=== PATIENT | female | born 1965 | race Caucasian/White ===

== ENCOUNTER → 2018-09-28 16:33 | Outpatient (CLI) | payer OTHER, SELFPAY ==
--- NOTE | 2018-09-28 16:37 | RAD_ITS ---
STUDY: X-RAY - ABDOMEN/PELVIS REASON FOR EXAM: Female, 53 years old. Hematuria TECHNIQUE: Single AP view of the abdomen / pelvis. COMPARISON: None. FINDINGS: Normal visualized lung bases. There is a moderate amount of colonic fecal material. No dilated loops of bowel or evidence for obstruction. There is no demonstrated free abdominal air. The visualized liver, spleen and kidneys are grossly normal in size and morphology. Normal soft tissue structures. Normal visualized osseous structures. RAD/Abdomen Single View IMPRESSION: No definite renal or ureteral stones. Moderate fecal retention. Electronically Signed: Dean Sevilla MD at 14:09 EDT , Service support ,
[2018-09-28 17:40] LABS: Absolute Lymphocyte Count 3.56 X10^3/ul (0.83-4.51); Absolute Neutrophil Count 6.4 X10^3/uL (2.0-7.7); Basophil# 0.06 X10^3/uL; Basophil% 0.6 % (0-1); Eosinophil# 0.24 X10^3/uL; Eosinophils% 2.2 % (0-5); Hematocrit 43.2 % (37-47); Hemoglobin 13.4 g/dl (12.0-15.0); Lymphocyte # 3.56 X10^3/ul (4.0); Lymphocyte % 32.7 % (19-41); Mean Corpuscular Hgb 27.2 pg (27.0-32.0); Mean Corpuscular Volume 87.8 fL (81-99); Mean Platelet Vol. 11.2 fl (6.2-12.0); Monocyte# 0.58 X10^3/uL; Monocyte% 5.3 % (0-10); Neutrophil # 6.43 X10^3/uL (2.7-7.7); Neutrophil % 59.1 % (47-70); Platelet Count 319 K/mm3 (150-450); RBC Distribution Width CV 14.2 % (11.6-14.6); RBC Distribution Width SD 45.3 fl (35.1-43.9); Red Blood Count 4.92 M/mm3 (4.2-5.4); White Blood Count 10.9 K/mm3 (4.4-11.0)
[2018-09-28 17:41] LABS: POSITIVE COUNT NO; POSITIVE DIFFERENTIAL NO; POSITIVE MORPHOLOGY NO
[2018-09-28 17:50] LABS: Anion Gap 5 (5-15); BUN 14 mg/dL (7-18); BUN/Creat Ratio 25.6 RATIO (10-20); Calcium,Total 8.6 mg/dL (8.5-10.1); Chloride 105 mmol/L (98-107); Creatinine, Serum 0.55 mg/dL (0.55-1.02); EST Glomerular Filtration Rate 124 mL/min (>60); Est Glom Filt Rate - Afr Amer 150 mL/min (>60); Glucose 96 mg/dL (74-106); Potassium 3.4 mmol/L (3.5-5.1); Sodium Level 142 mmol/L (136-145)
== END ==
PROVIDERS: Family Provider Family Medicine; PCP Family Medicine; Referring Provider Family Medicine; Visit Provider Family Medicine
DX: R31.9 Hematuria, unspecified (principal)
CPT/HCPCS: 36415; 74018; 80048; 85025; 87086; 87088

== ENCOUNTER → 2018-10-06 17:24 | Outpatient (CLI) | payer OTHER, SELFPAY ==
--- NOTE | 2018-10-06 17:29 | CT_ITS ---
STUDY: CT ABDOMEN AND PELVIS WITH CONTRAST REASON FOR EXAM: Female, 53 years old. Hematuria RADIATION DOSAGE (If Supplied By Facility): CTDIvol = ( 17.07 ) mGy, DLP = ( 1361.15 ) mGycm TECHNIQUE: Transaxial images were obtained from the dome of the diaphragm to the symphysis pubis without oral contrast. 100 ml of Isovue 300 contrast was administered. Sagittal and coronal images were reconstructed. Individualized dose optimization techniques were used for this CT. COMPARISON: None. FINDINGS: The lung bases are clear. The liver is normal. No dilated intrahepatic biliary radicles. The gallbladder is normal with no calcifications within it. There is no pericholecystic fluid collection or streakiness The spleen is normal. The pancreas is normal. Both adrenals are normal. No hydronephrosis. No abnormal calcifications. Tiny benign renal cysts. The stomach is normal. There is no bowel distention, acute appendicitis or diverticulitis. No constricting lesions are seen in large bowel. The abdominal wall is intact with no hernias. There is no ascites or any free intraperitoneal air. No indication of epiploic appendagitis The vascular structures in the retroperitoneum are normal. There is no retrocrural, retroperitoneal or mesenteric adenopathy. The bones and joints are normal. The urinary bladder is normal. A previous hysterectomy. There is no inguinal or pelvic adenopathy. There is no inguinal hernia. . . CT/Abdomen/Pelvis WITH Contrast IMPRESSION: No acute findings in the abdomen or pelvis. Specifically there is no acute appendicitis or colitis. No hydronephrosis and no abnormal calcifications in the kidneys. The urinary bladder is normal. Electronically Signed: Steve Rodriguez MD at 5:54 EST Tel , Service support ,
== END ==
PROVIDERS: Family Provider Family Medicine; PCP Family Medicine; Referring Provider Family Medicine; Visit Provider Family Medicine
DX: R31.9 Hematuria, unspecified (principal)
CPT/HCPCS: 74177; Q9967

== ENCOUNTER → 2018-11-23 14:34 | Outpatient (CLI) | payer OTHER, SELFPAY ==
--- NOTE | 2018-11-23 15:17 | CT_ITS ---
STUDY: CTA CHEST REASON FOR EXAM: Female, 53 years old. RADIATION DOSAGE (If Supplied By Facility): CTDIvol = ( 20.02 ) mGy, DLP = ( 651.14 ) mGycm TECHNIQUE: The examination was performed with the intravenous administration of 100 ml of Isovue 370 contrast material. Post-processing of the angiographic images was performed, with multiplanar reformation and 3D reconstruction. Individualized dose optimization techniques were used for this CT. COMPARISON: None. FINDINGS: Normal enhancement of the main pulmonary artery and right and left pulmonary arteries. Normal enhancement of the bilateral peripheral pulmonary arteries. There is no demonstrated pulmonary embolism. Normal thoracic aorta and visualized great vessels. There is no demonstrated aortic dissection. Normal heart and pericardium. Normal mediastinum. Normal hilar regions. Normal visualized trachea and bronchi. The lungs are well expanded. Normal pulmonary parenchyma. Normal pleura. Normal chest wall structures. Normal osseous structures. Normal visualized upper abdomen. A small hiatal hernia present. CT/CTA Chest W/WO Contrast IMPRESSION: Normal CTA chest examination, without a demonstrated pulmonary embolism or arterial dissection. There is small hiatal hernia. Electronically Signed: Samm Turner, at 16:07 EST Tel , Service support ,
[2018-11-23 15:23] LABS: Absolute Lymphocyte Count 3.99 X10^3/ul (0.83-4.51); Absolute Neutrophil Count 6.1 X10^3/uL (2.0-7.7); Basophil# 0.05 X10^3/uL; Basophil% 0.5 % (0-1); Eosinophil# 0.39 X10^3/uL; Eosinophils% 3.5 % (0-5); Hematocrit 39.9 % (37-47); Hemoglobin 12.7 g/dl (12.0-15.0); Lymphocyte # 3.99 X10^3/ul (4.0); Lymphocyte % 36.2 % (19-41); Mean Corp Hgb Conc 31.8 g/gl (32-36); Mean Corpuscular Hgb 27.8 pg (27.0-32.0); Mean Corpuscular Volume 87.3 fL (81-99); Mean Platelet Vol. 11.1 fl (6.2-12.0); Monocyte# 0.51 X10^3/uL; Monocyte% 4.6 % (0-10); Neutrophil # 6.07 X10^3/uL (2.7-7.7); Platelet Count 331 K/mm3 (150-450); RBC Distribution Width CV 14.7 % (11.6-14.6); RBC Distribution Width SD 46.4 fl (35.1-43.9); Red Blood Count 4.57 M/mm3 (4.2-5.4)
[2018-11-23 15:24] LABS: POSITIVE COUNT NO; POSITIVE DIFFERENTIAL NO; POSITIVE MORPHOLOGY NO
[2018-11-23 15:33] LABS: Anion Gap 7 (5-15); BUN 12 mg/dL (7-18); BUN/Creat Ratio 18.2 RATIO (10-20); Calcium,Total 8.7 mg/dL (8.5-10.1); Chloride 106 mmol/L (98-107); Creatinine, Serum 0.66 mg/dL (0.55-1.02); EST Glomerular Filtration Rate 100 mL/min (>60); Est Glom Filt Rate - Afr Amer 121 mL/min (>60); Glucose 97 mg/dL (74-106); Potassium 3.8 mmol/L (3.5-5.1); Sodium Level 142 mmol/L (136-145)
== END ==
LOC: MFPLAB 14:41 → CT 15:03
PROVIDERS: Family Provider Family Medicine; PCP Family Medicine; Referring Provider Family Medicine; Visit Provider Family Medicine
DX: R07.9 Chest pain, unspecified (principal)
CPT/HCPCS: 36415; 71275; 80048; 85025; Q9967

== ENCOUNTER → 2019-02-03 11:40 | Outpatient (CLI) | payer OTHER, SELFPAY ==
--- NOTE | 2019-02-03 11:57 | RAD_ITS ---
STUDY: X-RAY CHEST REASON FOR EXAM: Female, 53 years old. Cough and shortness of breath. TECHNIQUE: PA and lateral views of the chest. COMPARISON: Prior comparison studies are not available for review at this time. FINDINGS: There are hypoventilatory changes in the right lung base. No focal infiltrate is seen. There is no demonstrated pleural abnormality. Normal size heart. Normal mediastinum and jarvis. Normal visualized pulmonary arteries. Normal visualized aortic arch and descending thoracic aorta. There are degenerative changes of the visualized thoracic spine. Normal visualized ribs, clavicles, and shoulders. There is no demonstrated abnormality of the visualized soft tissue structures of the upper abdomen. RAD/Chest PA and Lateral IMPRESSION: Hypoventilatory changes. No active pulmonary disease. Electronically Signed: Michele Richey MD at 11:40 EST Tel , Service support ,
== END ==
PROVIDERS: Family Provider Family Medicine; PCP Family Medicine; Referring Provider Family Medicine; Visit Provider Family Medicine
DX: J40 Bronchitis, not specified as acute or chronic (principal)
CPT/HCPCS: 71046

== ENCOUNTER → 2019-03-29 | Outpatient (CLI) | payer OTHER, SELFPAY ==
[2019-03-29 17:43] LABS: Anion Gap 4 (5-15); BUN 12 mg/dL (7-18); Calcium,Total 8.5 mg/dL (8.5-10.1); Chloride 106 mmol/L (98-107); Creatinine, Serum 0.63 mg/dL (0.55-1.02); EST Glomerular Filtration Rate 105 mL/min (>60); Est Glom Filt Rate - Afr Amer 127 mL/min (>60); Glucose 100 mg/dL (74-106); Potassium 4.1 mmol/L (3.5-5.1); Sodium Level 140 mmol/L (136-145)
[2019-03-29 18:02] LABS: Vitamin B12 514 pg/mL (211-911); Vitamin D,25 Hydroxy 8.8 ng/mL (29.95-100.01)
== END | disposition home or self-care (01) ==
LOC: MFPLAB 15:59
PROVIDERS: Family Provider Family Medicine; PCP Family Medicine; Referring Provider Family Medicine; Visit Provider Family Medicine
DX: R60.9 Edema, unspecified (principal); E53.8 Deficiency of other specified B group vitamins; E55.9 Vitamin D deficiency, unspecified
CPT/HCPCS: 36415; 80048; 82306; 82607

== ENCOUNTER → 2019-07-19 | Outpatient (CLI) | payer OTHER, SELFPAY ==
--- NOTE | 2019-07-19 16:03 | BI_ITS ---
MAMMOGRAPHY - BILATERAL SCREENING 3-D TOMOSYNTHESIS REASON FOR EXAM: Female, 54 years old. Bilateral Screening 3-D tomosynthesis PERTINENT HISTORY: No significant family history. TECHNIQUE: 2-D mammograms and 3-D Tomosynthesis of the breast (s) were performed. CAD was performed. COMPARISON: No comparison mammograms available at this time. If any prior films become available, an addendum to this report can be generated. FINDINGS: The breast composition is composed of scattered fibroglandular density. Scattered benign-appearing nodular densities visualized on both sides. Comparison with prior mammogram is recommended as follow-up to ensure non progression and stability. Scattered benign calcifications are seen. No dense spiculated masses or suspicious microcalcifications are identified. No architectural distortion is identified. There is no skin thickening or retraction. BI/SCREEN MAMM (CAD) W/DAVID BILAT IMPRESSION: Scattered benign-appearing nodular densities visualized on both sides. Comparison with prior mammogram is recommended as follow-up to ensure non progression and stability. ASSESSMENT CATEGORY: BIRADS Category 0: Incomplete. Need prior mammogram for comparison. A letter regarding these results will be sent to the patient by the facility within 30 days. FOLLOW UP RECOMMENDATION: Prior comparison images are needed. (K) Approximately 10% of breast cancers are not detected by mammography. A normal mammogram should not delay biopsy of a clinically suspicious abnormality. Electronically Signed: Sage Overton MD at 16:50 EDT Tel [phone], Service support ,
== END | disposition home or self-care (01) ==
PROVIDERS: Family Provider Family Medicine; PCP Family Medicine; Referring Provider Family Medicine; Visit Provider Family Medicine
DX: Z12.31 Encounter for screening mammogram for malignant neoplasm of breast (principal)
CPT/HCPCS: 77063; 77067

== ENCOUNTER → 2019-08-01 | Outpatient (CLI) | payer OTHER, SELFPAY ==
--- NOTE | 2019-08-01 09:46 | US_ITS ---
STUDY: ULTRASOUND BREAST - RIGHT REASON FOR EXAM: Female, 54 years old. Abnormal screening mammogram. TECHNIQUE: Axial and longitudinal images of the RIGHT breast were performed with a high resolution ultrasound transducer. COMPARISON: Comparison is made with prior mammogram dated July 19, 2019. FINDINGS: RIGHT Breast: There is an 8mm by 6 mm x 5 mm well-defined hypoechoic solid nodule at the 12:00 position breast at 4 cm from the nipple. There is also evidence of a 7 mm x 8 mm x 4 mm lipoma at the 10:00 position of the breast at 4 cm from the nipple. A similar appearing nodular density measuring 3 mm x 2 mm x 3 mm is seen at the 9:00 position of the breast at 5 cm from the nipple. There is also evidence of a 7 mm x 8 mm x 4 mm hypoechoic nodule with a central area of echogenic density suggestive of a small lymph node. IMPRESSION: Findings suggestive of a lymph node and 2 small lipomas in the breast as described. There is evidence of a 8 mm x 6 mm x 5 mm hypoechoic well-defined nodular density at the 12:00 percent of breast at 4 sinus on the nipple. A biopsy is recommended for further evaluation. ASSESSMENT CATEGORY: BIRADS Category 4: Suspicious - Biopsy Should Be Considered. A letter regarding these results will be sent to the patient by the facility within 30 days. Electronically Signed: Carlin Velazquez, at 14:41 EDT , Service support , STUDY: ULTRASOUND BREAST - LEFT REASON FOR EXAM: Female, 54 years old. Abnormal screening mammogram. TECHNIQUE: Axial and longitudinal images of the LEFT breast were performed with a high resolution ultrasound transducer. COMPARISON: None. FINDINGS: LEFT Breast: There is an 8 mm x 8 mm x 7 mm well-defined hypoechoic nodule at the 2:00 position of the breast at 2 cm from the nipple. A similar appearing nodule measuring 4 mm x 5 mm x 4 mm is also seen at the 1:00 position of the breast at 2 cm from the nipple. A biopsy of this lesion is recommended for further evaluation. Incidental note is also made of 2 subcentimeter lipomas at the 7:30 and 8:00 position of the breast. US/Breast Limited Unilateral IMPRESSION: Multiple findings as described. A biopsy of the 4 mm x 5 mm x 4 mm nodule is recommended at the 1:00 position of the breast at 2 cm from the nipple. ASSESSMENT CATEGORY: BIRADS Category 4: Suspicious - Biopsy Should Be Considered. A letter regarding these results will be sent to the patient by the facility within 30 days. Electronically Signed: Carlin Velazquez, at 14:44 EDT , Service support ,
== END | disposition home or self-care (01) ==
LOC: OPUS 09:44
PROVIDERS: Family Provider Family Medicine; PCP Family Medicine; Referring Provider Family Medicine; Visit Provider Family Medicine
DX: N63.10 Unspecified lump in the right breast, unspecified quadrant (principal); N63.20 Unspecified lump in the left breast, unspecified quadrant
CPT/HCPCS: 76642

== ENCOUNTER → 2019-08-07 12:12 | Outpatient (CLI) | payer OTHER, SELFPAY ==
--- NOTE | 2019-08-07 | IMM_PTH ---
PATIENT: BRANDON BEY LOC: [facility] U#:[id number] AGE/SX: 60/F ROOM: RE08/07/[address]: Dr. Jonny Ma MD : 1965 BED: DIS: SPEC #: [id number] RECD: 08/09/19 12:43 STATUS: ANATOLIY RERoselia #: [id number] DIANA: 08/07/19 00:[address]: Jonny Ma DEPT: IMMUNOHISTOCHEMISTRY RECD BY: Leilani Law ENTERED: 08/09/19 12:45 SP TYPE: IMMUNO OTHR DR: Dr. Marvel Ashley MD Tissues: B - Right breast, NOS C - Left breast, NOS Procedures: Calponin-1(initial) CD138 (add) CD20 (add) CD3 (add) CD45 (add) CD5 (add) CD79A (add) P40 (add) PHYSICIAN & INSTITUTION [place] [id number] SPECIMEN INFORMATION: Tissue Source: B - Right breast tissue at 12 o'clock +6, C - Left breast at 1 o'clock Clinical Info: Abnormal breast ultrasound Specimen Number: [id number] B & C CPT code: 53369 x2, 88554 x8 METHODOLOGY: Deparaffinized sections of prefer/formalin-fixed tissue or PAP/DQ stained slides are incubated with monoclonal/polyclonal antibodies/oligonucleotide probes. Localization is made via biotin free immunoperoxidase method. Appropriate controls are performed and reacted as expected. Results on target cell population are indicated in the following table: RESULTS: ANTIBODY / CLONE RESULT Block B Calponin-1 (GV330N) positive P40 (BC28) positive Block C CD3 (PS1) positive CD5 (SP10) positive CD20 (L26) positive CD45 (RP2/18) positive CD79a (11E3) positive CD138 (B-A38) negative Calponin-1 (XX368J) positive P40 (BC28) positive These tests were developed and their performance characteristics determined by [facility]. They may not have been cleared or approved by the U.S. Food and Drug Administration. The FDA has determined that such clearance or approval is not necessary. INTERPRETATION: B. Right breast tissue at 12 o'clock +6, core biopsy: Benign breast tissue. C. Left breast at 1 o'clock, core biopsy: Benign breast tissue. Consistent with chronic inflammation. AM:brendan 08/10/19
[2019-08-07 15:05] VITALS: BMI 52.0
--- NOTE | 2019-08-07 15:30 | BRBX_PTH ---
PATIENT: BRANDON BEY LOC: [facility] U#:[id number] AGE/SX: 60/F ROOM: RE08/07/[address]: Dr. Jonny Ma MD : 1965 BED: DIS: SPEC #: [id number] RECD: 08/08/19 09:19 STATUS: ANATOLIY GINO #: [id number] DIANA: 08/07/19 15:[address]: Jonny Ma DEPT: SURGICAL PATHOLOGY RECD BY: Meri Briscoe ENTERED: 08/08/19 10:38 SP TYPE: BREAST BX OTHR DR: Dr. Marvel Ashley MD Tissues: A - Right breast, NOS B - Right breast, NOS C - Left breast, NOS Procedures: Surgery Specimen Level IV HEADER OPERATION: Breast biopsy PRE-OP DIAGNOSIS: Abnormal breast ultrasound TISSUE SUBMITTED: A. Right breast tissue at 12 o'clock +4, B. Right breast tissue at 12 o'clock +6, C. Left breast tissue at 1 o'clock MICROSCOPIC DIAGNOSIS A. Right breast at 12 o'clock, core biopsy: Benign fibrofatty tissue. Blood clot. B. Right breast at 12 o'clock +6, core biopsy: Fibroadenoma. See comment. C. Left breast at 1 o'clock, core biopsy: Benign breast parenchyma. Reactive lymphoid tissue suggestive of chronic inflammation. See comment. AM:brendan 08/09/19 COMMENT B & C. Immunohistochemistry ([id number]) supports the above diagnosis. Case has been reviewed in consultation with Dr. Marion who concurs with the above diagnosis. IDC:SJ MICROSCOPIC DESCRIPTION Slides are reviewed. GROSS DESCRIPTION A - Received in fixative is one container labeled with the patient's name and designated right breast 12 o'clock +4. The specimen consists of multiple elongated fragments of kan-yellow fibroadipose tissue that in aggregate measure 0.5 x 0.5 x 0.1 cm. A few minute brownish fragments are also noted. The entire specimen is submitted in one cassette. B - Received in fixative is one container labeled with the patient's name and designated right breast 12 o'clock +6. The specimen consists of multiple elongated fragments of kan-yellow fibroadipose tissue that in aggregate measure 1.5 x 0.3 x 0.1 cm. The entire specimen is submitted in one cassette. C - Received in fixative is one container labeled with the patient's name and designated left breast 1 o'clock. The specimen consists of multiple elongated fragments of kan-yellow fibroadipose tissue that in aggregate measure 1.5 x 0.2 x 0.1 cm. The entire specimen is submitted in one cassette. / SJ:rg 08/08/19 TC:1 CPT: 60777 x3
== END ==
PROVIDERS: Family Provider Family Medicine; PCP Family Medicine; Referring Provider Surgery; Visit Provider Surgery
DX: D24.1 Benign neoplasm of right breast (principal)
CPT/HCPCS: 88305; 88341; 88342

== ENCOUNTER → 2020-01-31 09:05 | Outpatient (CLI) | payer OTHER, SELFPAY ==
[2019-08-07 15:05] VITALS: BMI 52.0
--- NOTE | 2020-01-31 09:06 | BI_ITS ---
MAMMOGRAPHY - BILATERAL DIAGNOSTIC REASON FOR EXAM: Female, 54 years old. Six-month follow-up for prior bilateral ultrasound-guided breast biopsies. PERTINENT HISTORY: Non-contributory. TECHNIQUE: Digital bilateral breast lonnie (3D mammographic acquisition) in the CC and MLO projections. 2-D mediolateral oblique (MLO) and craniocaudad (CC) views of both breasts were obtained. CAD: Full Field Digital Mammography with Computer Added Detection was performed. COMPARISON: Comparison is made with prior mammogram dated July 19, 2019. FINDINGS: Breast Composition: There are scattered areas of fibroglandular density. Stable benign-appearing bilateral breast nodules. A tissue clip marker is seen within the 1 cm nodule in the upper lateral aspect of the left breast. A tissue clip marker is also seen within a 5.2 mm nodule in the upper anterior lateral portion of the right breast. No other significant abnormalities are identified. There has been no significant change since the prior study. BI/DIAG MAMM W/CAD, BILAT IMPRESSION: Stable bilateral diagnostic mammogram. Status post bilateral breast nodule biopsies. One year follow-up recommended. (A) ASSESSMENT CATEGORY: BIRADS Category 2: Benign. A letter regarding these results will be sent to the patient by the facility within 30 days. Approximately 10% of breast cancers are not detected by mammography. A normal mammogram should not delay biopsy of a clinically suspicious abnormality. Electronically Signed: Carlin Velazquez, at 10:31 EST , Service support ,
== END ==
PROVIDERS: PCP Family Medicine; Referring Provider Surgery; Visit Provider Surgery
DX: R92.8 Other abnormal and inconclusive findings on diagnostic imaging of breast (principal)
CPT/HCPCS: 77062; 77066; G0279

== ENCOUNTER → 2020-05-22 10:26 | Outpatient (CLI) | payer OTHER, SELFPAY ==
[2019-08-07 15:05] VITALS: BMI 52.0
[2020-05-22 12:43] LABS: Absolute Lymphocyte Count 2.66 X10^3/uL (0.83-4.51); Absolute Neutrophil Count 5.9 X10^3/uL (2.0-7.7); Basophil# 0.07 X10^3/uL; Basophil% 0.7 % (0-1); Eosinophil# 0.19 X10^3/uL; Hematocrit 44.1 % (37-47); Hemoglobin 13.3 g/dL (12.0-15.0); Lymphocyte # 2.66 X10^3/ul (4.0); Lymphocyte % 28.3 % (19-41); Mean Corp Hgb Conc 30.2 g/dL (32-36); Mean Corpuscular Hgb 26.7 pg (27.0-32.0); Mean Corpuscular Volume 88.6 fL (81-99); Mean Platelet Vol. 12.1 fl (6.2-12.0); Monocyte# 0.59 X10^3/uL; Monocyte% 6.3 % (0-10); NRBC Flagged by Analyzer 0 % (0-5); Neutrophil # 5.86 X10^3/uL (2.7-7.7); Neutrophil % 62.4 % (47-70); Platelet Count 321 K/mm3 (150-450); RBC Distribution Width SD 44.9 fl (35.1-43.9); Red Blood Count 4.98 M/mm3 (4.2-5.4); White Blood Count 9.4 K/mm3 (4.4-11.0)
[2020-05-22 12:47] LABS: Anion Gap 6 (5-15); BUN 11 mg/dL (7-18); BUN/Creat Ratio 16.9 RATIO (10-20); Calcium,Total 8.9 mg/dL (8.5-10.1); Chloride 104 mmol/L (98-107); Creatinine, Serum 0.65 mg/dL (0.55-1.02); EST Glomerular Filtration Rate 101 mL/min (>60); Est Glom Filt Rate - Afr Amer 122 mL/min (>60); Glucose 101 mg/dL (74-106); Potassium 3.3 mmol/L (3.5-5.1); Sodium Level 142 mmol/L (136-145)
== END ==
PROVIDERS: PCP Family Medicine; Visit Provider Family Medicine
DX: M54.5 Low back pain (principal)
CPT/HCPCS: 36415; 80048; 85025

== ENCOUNTER → 2020-09-11 10:15 | Outpatient (CLI) | payer OTHER, SELFPAY ==
[2019-08-07 15:05] VITALS: BMI 52.0
[2020-09-11 13:03] LABS: Anion Gap 7 (5-15); BUN 10 mg/dL (7-18); Calcium,Total 9.4 mg/dL (8.5-10.1); Chloride 104 mmol/L (98-107); Creatinine, Serum 0.77 mg/dL (0.55-1.02); EST Glomerular Filtration Rate 83 mL/min (>60); Est Glom Filt Rate - Afr Amer 100 mL/min (>60); Glucose 101 mg/dL (74-106); Potassium 3.5 mmol/L (3.5-5.1); Sodium Level 138 mmol/L (136-145)
== END ==
PROVIDERS: PCP Family Medicine; Referring Provider Family Medicine; Visit Provider Family Medicine
DX: E87.6 Hypokalemia (principal)
CPT/HCPCS: 36415; 80048

== ENCOUNTER 2020-12-16 13:14 | Outpatient (RCR) | payer OTHER, SELFPAY ==
[2019-08-07 15:05] VITALS: BMI 52.0
== END 2020-12-29 23:59 ==
LOC: NS 13:14
PROVIDERS: PCP Family Medicine; Visit Provider Family Medicine
DX: Z71.3 Dietary counseling and surveillance (principal); E66.01 Morbid (severe) obesity due to excess calories; Z68.43 Body mass index [BMI] 50.0-59.9, adult
CPT/HCPCS: 97802

== ENCOUNTER 2021-01-06 17:15 | Outpatient (RCR) | payer OTHER, SELFPAY ==
[2019-08-07 15:05] VITALS: BMI 52.0
== END 2021-01-26 23:59 ==
LOC: NS 17:15
PROVIDERS: PCP Family Medicine; Visit Provider Family Medicine
DX: Z71.3 Dietary counseling and surveillance (principal); E66.01 Morbid (severe) obesity due to excess calories; Z68.43 Body mass index [BMI] 50.0-59.9, adult
CPT/HCPCS: 97803

== ENCOUNTER 2021-02-03 15:45 | Outpatient (RCR) | payer OTHER, SELFPAY ==
[2019-08-07 15:05] VITALS: BMI 52.0
== END 2021-02-26 23:59 ==
LOC: NS 15:45
PROVIDERS: PCP Family Medicine; Visit Provider Family Medicine
DX: Z71.3 Dietary counseling and surveillance (principal); E66.01 Morbid (severe) obesity due to excess calories; Z68.43 Body mass index [BMI] 50.0-59.9, adult
CPT/HCPCS: 97803

== ENCOUNTER → 2022-05-27 | Outpatient (CLI) | payer OTHER, SELFPAY ==
[2022-05-27 10:10] LABS: Anion Gap 5 (5-15); BUN 14 mg/dL (7-18); BUN/Creat Ratio 23.8 RATIO (10-20); Calcium,Total 9.2 mg/dL (8.5-10.1); Chloride 104 mmol/L (98-107); Cholesterol 140 mg/dL (200); Creatinine, Serum 0.59 mg/dL (0.55-1.02); EST Glomerular Filtration Rate 112 mL/min (>60); Est Glom Filt Rate - Afr Amer 135 mL/min (>60); Glucose 103 mg/dL (74-106); High Density Lipoprotein 57 mg/dL; Potassium 3.5 mmol/L (3.5-5.1); Sodium Level 139 mmol/L (136-145); Thyroid Stim Hormone (TSH) 1.24 uIU/mL (0.358-3.74); Triglycerides 63 mg/dL; Very Low Density Lipoprotein 13 mg/dL (5-40)
== END | disposition home or self-care (01) ==
LOC: MFPLAB 08:47
PROVIDERS: PCP Family Medicine; Visit Provider Family Medicine
DX: I10 Essential (primary) hypertension (principal); F41.9 Anxiety disorder, unspecified
CPT/HCPCS: 36415; 80048; 80061; 84443

== ENCOUNTER → 2022-09-23 | Outpatient (CLI) | payer OTHER, SELFPAY ==
[2022-09-23 14:58] LABS: Hematocrit 43.9 % (37-47); Mean Corp Hgb Conc 31.9 g/dL (32-36); Mean Corpuscular Hgb 27.5 pg (27.0-32.0); Mean Corpuscular Volume 86.1 fL (81-99); Mean Platelet Vol. 11.6 fl (6.2-12.0); Platelet Count 357 K/mm3 (150-450); RBC Distribution Width CV 14.1 % (11.6-14.6); RBC Distribution Width SD 44.7 fl (35.1-43.9); White Blood Count 9.1 K/mm3 (4.4-11.0)
[2022-09-23 15:14] LABS: Vitamin B12 402 pg/mL (211-911); Vitamin D,25 Hydroxy 32.2 ng/mL
[2022-09-23 15:18] LABS: Hemoglobin A1c 5.9 % (3.8-5.6)
[2022-09-23 15:24] LABS: ALB/GLOB Ratio 0.8 RATIO (0.9-2.4); AST(SGOT) 10 U/L (15-37); Alanine Aminotransfer ALT/SGPT 17 U/L (13-56); Albumin, Serum 3.3 g/dL (3.2-5.0); Alkaline Phosphatase 76 U/L (45-117); Anion Gap 7 (5-15); BUN 10 mg/dL (7-18); BUN/Creat Ratio 14.5 RATIO (10-20); Calcium,Total 8.7 mg/dL (8.5-10.1); Chloride 99 mmol/L (98-107); Cholesterol 153 mg/dL (200); Creatinine, Serum 0.69 mg/dL (0.55-1.02); EST Glomerular Filtration Rate 93 mL/min (>60); Est Glom Filt Rate - Afr Amer 113 mL/min (>60); Ferritin 120 ng/mL (8-252); Globulin 3.9 g/dL (2.2-4.2); Glucose 92 mg/dL (74-106); High Density Lipoprotein 65 mg/dL; Iron 63 ug/dL (50-170); Potassium 3.7 mmol/L (3.5-5.1); Protein, Total 7.2 g/dL (6.4-8.2); Sodium Level 138 mmol/L (136-145); Thyroid Stim Hormone (TSH) 1.28 uIU/mL (0.358-3.74); Triglycerides 51 mg/dL; Very Low Density Lipoprotein 10 mg/dL (5-40)
[2022-09-30 12:08] LABS: Vitamin B1, Thiamine 136.2 nmol/L (66.5-200.0)
[2022-09-30 16:44] LABS: Zinc, Plasma or Serum 72 ug/dL (44-115)
== END | disposition home or self-care (01) ==
LOC: MFPLAB 10:06
PROVIDERS: Physician Assistant; PCP Family Medicine; Referring Provider Family Medicine; Visit Provider Family Medicine
DX: I10 Essential (primary) hypertension (principal); E66.01 Morbid (severe) obesity due to excess calories; Z68.43 Body mass index [BMI] 50.0-59.9, adult; G47.33 Obstructive sleep apnea (adult) (pediatric); K21.9 Gastro-esophageal reflux disease without esophagitis
CPT/HCPCS: 36415; 80053; 80061; 82306; 82607; 82728; 82746; 83036; 83540; 83735; 84425; 84443; 84630; 85027

== ENCOUNTER → 2023-03-19 | Outpatient (CLI) | payer OTHER, SELFPAY ==
[2023-03-19 12:40] LABS: ALB/GLOB Ratio 0.9 RATIO (0.9-2.4); AST(SGOT) 16 U/L (15-37); Alanine Aminotransfer ALT/SGPT 21 U/L (13-56); Albumin, Serum 3.4 g/dL (3.2-5.0); Alkaline Phosphatase 65 U/L (45-117); Anion Gap 4 (5-15); BUN 10 mg/dL (7-18); BUN/Creat Ratio 18.3 RATIO (10-20); Chloride 101 mmol/L (98-107); Cholesterol 151 mg/dL (200); Creatinine, Serum 0.55 mg/dL (0.55-1.02); EST Glomerular Filtration Rate 122 mL/min (>60); Est Glom Filt Rate - Afr Amer 147 mL/min (>60); Globulin 3.6 g/dL (2.2-4.2); Glucose 92 mg/dL (74-106); High Density Lipoprotein 62 mg/dL; Potassium 3.7 mmol/L (3.5-5.1); Sodium Level 137 mmol/L (136-145); Triglycerides 77 mg/dL; Very Low Density Lipoprotein 15 mg/dL (5-40)
== END | disposition home or self-care (01) ==
LOC: MFPLAB 09:50
PROVIDERS: PCP Family Medicine; Visit Provider Family Medicine
DX: I10 Essential (primary) hypertension (principal)
CPT/HCPCS: 36415; 80053; 80061

== ENCOUNTER → 2024-01-03 | Outpatient (CLI) | payer OTHER, SELFPAY ==
[2024-01-03 12:25] LABS: Anion Gap 4 (5-15); BUN 14 mg/dL (7-18); BUN/Creat Ratio 21.7 RATIO (10-20); Chloride 100 mmol/L (98-107); Cholesterol 141 mg/dL (200); Creatinine, Serum 0.64 mg/dL (0.55-1.02); EST Glomerular Filtration Rate 100 mL/min (>60); Est Glom Filt Rate - Afr Amer 121 mL/min (>60); Glucose 108 mg/dL (74-106); High Density Lipoprotein 67 mg/dL; Potassium 3.7 mmol/L (3.5-5.1); Sodium Level 136 mmol/L (136-145); Triglycerides 60 mg/dL; Very Low Density Lipoprotein 12 mg/dL (5-40)
== END | disposition home or self-care (01) ==
LOC: MFPLAB 09:51
PROVIDERS: PCP Family Medicine; Visit Provider Family Medicine
DX: I10 Essential (primary) hypertension (principal)
CPT/HCPCS: 36415; 80048; 80061